=== PATIENT | female | born 1945 | race African-American/Black ===

== ENCOUNTER → 2022-10-31 10:21 | Outpatient (REF) | payer MEDICARE, SELFPAY ==
--- NOTE | 2022-10-31 10:27 | CA_ITS ---
Transthoracic Echocardiogram Patient (Last, First, Middle): Hawa Hamilton, Gender: Female Date of : 1945 Age: 77 Procedure Date: 10/31/2022 Procedure Type: Transthoracic Echocardiogram Location: OP Height: 152.4 cm Weight: 56.25 kg BSA: 1.52 m2 Heart Rate: 78 bpm BP: 115 / 80 mmHg Register Clerk: ASHER Referring MD: Josse Ortiz MD Symptoms: TIA G45.9 Study Quality: Adequate ECG Rhythm: Sinus Conclusions: - The left ventricular systolic function is normal. The calculated ejection fraction is 56% by biplane method. - Moderate focal hypertrophy of the basal septum. - No obvious valvular pathology seen on this study. Findings Left Ventricle Normal left ventricular cavity size. There is mildly increased left ventricular wall thickness. The left ventricular systolic function is normal. The calculated ejection fraction is 56% by biplane method. There is no evidence of regional wall motion abnormalities. Evidence suggests grade I (mild) diastolic dysfunction. Moderate focal hypertrophy of the basal septum. Right Ventricle Normal right ventricular cavity size and systolic function. Atria Both atria are normal in size. Aortic Valve There is a normal trileaflet aortic valve. There is mild calcification of the aortic valve. There is no aortic valve stenosis. There is no aortic valve regurgitation. Mitral Valve There is mild mitral annular calcification. There is trace mitral valve regurgitation. There is no mitral valve stenosis. Pulmonic Valve The pulmonic valve is likely normal. Tricuspid Valve Normal tricuspid valve structure. There is trace tricuspid valve regurgitation. There is no evidence of pulmonary hypertension. Great Vessels The asc aorta is normal in size. Venous The inferior vena cava is normal in size and collapses greater than 50% with inspiration. Pericardium/Pleural There is no evidence of pericardial effusion. Prior Study Comparison No prior study available for comparison. Recommendations, Care & Conclusions No obvious valvular pathology seen on this study. Measurements 2D Linear Measurements IVSd: 1.46 0.6-0.9/0.6-1.0 cm LVIDd: 3.54 3.9-5.3/4.2-5.9 cm LVIDd Index: 2.33 2.4-3.2/2.2-3.1 cm/m2 LVIDs: 2.27 2.0-3.6 cm LVPWd: 1.08 0.7-1.1 cm LA Diam: 3.30 2.7-3.8/3.0-4.0 cm LAIDs Index: 2.17 1.5-2.3 cm/m2 LV Mass: 187.61 67-162/88-224 g LV Mass Index: 123.43 43-95/49-115 g/m2 LVOT Diam: 1.90 3.0+(-)1.3 cm 2D Systolic Function EF 4C: 55.90 >55% EF 2C: 53.70 >55% EF BiP: 55.80 >55% Mitral Valve MV Pk E: 0.58 MV PK A: 0.94 MV Decel Time: 296.00 E/A: 0.60 E'Lateral: 6.09 E'Medial: 3.70 E/E' Med: 15.60 E/E' Lat: 9.50 PHT: 87.00 MVA PHT: 2.53 Decel [place]: 1.95 Aortic Valve AoV Pk Fran: 1.38 AoV Mn Fran: 1.02 AoV VTI: 0.27 AoV Pk Grad: 8.00 Aov Mn Grad: 5.00 KHLOE Cont.VTI: 1.66 LVOT LVOT Pk Fran: 0.74 LVOT Mn Fran: 0.58 LVOT VTI: 0.16 LVOT Pk Grad: 2.00 LVOT Mn Grad: 1.00 LVOT Diam: 1.90 LVOT Area: 2.84 Diastolic Function MV Pk E: 0.58 MV Pk A: 0.94 E/A: 0.60 E'Medial: 3.70 E/E' Med: 15.60 E' Laterial: 6.09 E/E' Lat: 9.50 Tricuspid Valve TR Pk Fran: 2.11 TR Pk Grad: 18.00 RA Press: 3.00 RVSP: 21.00 Great Vessels Aorta Sinus of Valsalva: 3.10 2.0-3.5 cm Ao Asc: 3.20 2.1-3.4 cm Pulmonary Valve PV Pk Fran: 0.69 Peak PV Grad: 2.00 Updated in Other Vendor System with Status of Final Juice Davila MD electronically signed on 11/01/2022 3:33:17 PM with status of Final
== END ==
LOC: HO.CARD 10:21
PROVIDERS: Visit Provider Internal Medicine
DX: G45.9 Transient cerebral ischemic attack, unspecified (principal)
CPT/HCPCS: 93306

== ENCOUNTER → 2022-10-31 10:27 | Outpatient (BNV) | payer MEDICARE, SELFPAY | PROVIDERS: Visit Provider Internal Medicine | DX: I35.8 Other nonrheumatic aortic valve disorders (principal) | CPT/HCPCS: 93306 ==